=== PATIENT | male | born 2000 | race African-American/Black ===

== ENCOUNTER 2022-01-10 09:41 | Emergency (ER) | payer OTHER ==
[~2022-01-10] VITALS: Ht 175.3 cm; Wt 79.0 kg
[2022-01-10] MEDS ORDERED: CLIN1GEL22 TOP (12:29)
[2022-01-10 12:51] VITALS: BP 122/73
[2022-01-13] MEDS ORDERED: DOXY-342 PO (07:40)
== END 2022-01-10 12:52 | disposition home or self-care (01) ==
LOC: M ED 09:41
DX: L73.9 Follicular disorder, unspecified (principal)

== ENCOUNTER 2022-05-12 22:27 | Emergency (ER) | payer OTHER ==
[~2022-05-12] VITALS: Ht 172.7 cm; Wt 77.7 kg
[~2022-05-12 22:27] MED LIST: CLIN1GEL22 TOP; DOXY100C81 PO
[2022-05-12 22:31] VITALS: BP 150/80
[2022-05-13] MEDS ORDERED: AMOXICILLIN 500 MG CAP PO ONE (00:45)
[2022-05-13] MEDS ORDERED: IBUPROFEN 800 MG TAB PO ONE (00:45)
[2022-05-13] MEDS ORDERED: AMOX500C PO ×2 (00:46→00:54)
== END 2022-05-13 01:05 | disposition home or self-care (01) ==
LOC: M ED 22:27
DX: H10.9 Unspecified conjunctivitis (principal); J01.90 Acute sinusitis, unspecified

== ENCOUNTER 2023-01-23 11:33 | Emergency (ER) | payer OTHER ==
[~2023-01-23] VITALS: Ht 172.7 cm; Wt 72.3 kg
[~2023-01-23 11:33] MED LIST changes: +AMOX500C PO; -DOXY100C81 PO; +DOXY100C82 PO
[2023-01-23] MEDS ORDERED: MUPI2OI (11:56)
[2023-01-23 15:30] VITALS: BP 117/63; TEMP 97.8; O2SAT 100
[2023-01-23] MEDS ORDERED: IBUPROFEN 600MG TAB PO ONE (15:40)
== END 2023-01-23 16:11 | disposition home or self-care (01) ==
LOC: M ED 11:33
DX: G44.209 Tension-type headache, unspecified, not intractable (principal)

== ENCOUNTER 2024-01-15 10:04 | Emergency (ER) | payer OTHER ==
[~2024-01-15] VITALS: Ht 170.2 cm; Wt 73.5 kg
[~2024-01-15 10:04] MED LIST changes: +MUPI2OI
[2024-01-15] MEDS: ACETAMINOPHEN 325 MG TAB PO ONE (12:09)
[2024-01-15] MEDS: IBUPROFEN 800 MG TAB PO ONE (12:09)
[2024-01-15] MEDS ORDERED: OXYM15SP2 (14:02)
[2024-01-15] MEDS ORDERED: IBUP-1022 PO (14:02)
[2024-01-15] MEDS ORDERED: PSEU30TA87 PO (14:02)
[2024-01-15 14:09] VITALS: BP 122/74; TEMP 97.7; O2SAT 100
== END 2024-01-15 14:11 | disposition home or self-care (01) ==
LOC: M ED 10:04
DX: T70.1XXA Sinus barotrauma, initial encounter (principal); J34.1 Cyst and mucocele of nose and nasal sinus; Z79.899 Other long term (current) drug therapy; Z79.1 Long term (current) use of non-steroidal anti-inflammatories (NSAID)